=== PATIENT | female | born 1990 | race African-American/Black ===

== ENCOUNTER 2016-09-22 23:22 | Emergency (ER) | payer BC | END 2016-09-23 02:31 | disposition home or self-care (01) | LOC: ER 23:22 | DX: O99.89 Other specified diseases and conditions complicating pregnancy, childbirth and the puerperium (principal); H66.91 Otitis media, unspecified, right ear; H72.91 Unspecified perforation of tympanic membrane, right ear; Z3A.00 Weeks of gestation of pregnancy not specified | CPT/HCPCS: 99283 ==